=== PATIENT | female | born 1985 | race Caucasian/White ===

== ENCOUNTER 2019-10-06 10:05 | Emergency (ER) | payer OTHER ==
[~2019-10-06] VITALS: Ht 175.3 cm; Wt 79.4 kg
[2019-10-06 10:22] VITALS: BP 119/59
--- NOTE | 2019-10-06 10:22 | NUR ---
Patient ambulated to bed 2. RN evaluating patient at bedside.
--- NOTE | 2019-10-06 10:25 | NUR ---
URINE CUP HANDED TO PT FOR SAMPLE
--- NOTE | 2019-10-06 10:39 | NUR ---
C/O LOWER BACK PAIN PROGRESSIVELY WORSENING AND RADIATING TO L SHOULDER X >1 WK DENIES INJURY AND NO RASH NOTED---ALSO DENIES DYSURIA , PT AWAKE ,ALERT , AMBULATORY WITH STEADY GAIT , AFEBRILE NOT IN DISTRESS. HX--DENIES RX---PHETERMINE, NORCO, VITAMIN D
--- NOTE | 2019-10-06 11:07 | NUR ---
dr urban at bedside.
[2019-10-06] MEDS ORDERED: MORPHINE SULFATE 4 MG/ML SYR IM ONE (11:50)
[2019-10-06 12:21] VITALS: BP 115/60
--- NOTE | 2019-10-06 12:21 | NUR ---
Patient discharged with v/s stable. Written and verbal after care instructions given and explained. Patient alert, oriented and verbalized understanding of instructions. Ambulatory with steady gait. All questions addressed prior to discharge. ID band removed. Patient advised to follow up with PMD. Rx of [place] 5mg-325mg, Ibuprofen 600mg, and Flexeril 10mg given. Patient instructed not to drive while taking pain medications, pt advised it will cause drowsiness. Patient educated on indication of medication including possible reaction and side effects. Opportunity to ask questions provided and answered.
== END 2019-10-06 12:21 | disposition home or self-care (01) ==
LOC: MED 10:05
DX: M54.9 Dorsalgia, unspecified (principal)
CPT/HCPCS: 96372; 99283; J2270

== ENCOUNTER 2021-03-06 18:10 | Emergency (ER) | payer OTHER ==
[~2021-03-06] VITALS: Ht 162.6 cm; Wt 88.0 kg
--- NOTE | 2021-03-06 18:20 | NUR ---
Patient ambulated to bed 12. RN evaluating the patient at bedside.
[2021-03-06 18:25] VITALS: BP 104/69
--- NOTE | 2021-03-06 18:26 | NUR ---
science technician at pt bedside for further evaluation.
--- NOTE | 2021-03-06 18:27 | NUR ---
36 Y/O FEMALE C/O RIGHT THUMB PAIN 03/21 DESCRIBES ACHING RADIATING TO WHOLE HAND X2DAYS. PT STATES SHE SLAMMED IT AND STARTED TO HURT TO RIGHT THUMB ONLY AND NOW WHOLE HAND AFFECTED. NOTED SWELLING TO RIGHT THUMB. PT DENIES N/V, DENIES FEVER/CHILLS. PMH: ASTHMA, TENDONITIS NKA
--- NOTE | 2021-03-06 18:36 | NUR ---
reproduction technician at pt bedside.
[2021-03-06] MEDS ORDERED: KETOROLAC 60 MG/2 ML VIAL IM ONE (19:10)
--- NOTE | 2021-03-06 19:11 | NUR ---
Dr. Shah at pt bedside for further evaluation.
--- NOTE | 2021-03-06 19:14 | NUR ---
Gave report to SHIVA Espinoza. Transfer of care at this time.
--- NOTE | 2021-03-06 19:15 | NUR ---
REPORT RECEIVED FROM SHIVA HESTER FOR CONTINUITY OF CARE.
[2021-03-06] MEDS ORDERED: IBUP-2213 PO (19:20)
[2021-03-06] MEDS ORDERED: ACET-8386 PO (19:20)
--- NOTE | 2021-03-06 19:27 | NUR ---
Patient discharged with v/s stable. Written and verbal after care instructions given and explained. Patient alert, oriented and verbalized understanding of instructions. Ambulatory with steady gait. All questions addressed prior to discharge. ID band removed. Patient advised to follow up with PMD. Rx of HYDROCODONE/ACETAMINOPHEN AND IBUPROFEN given. Patient educated on indication of medication including possible reaction and side effects. Opportunity to ask questions provided and answered.
== END 2021-03-06 19:27 | disposition home or self-care (01) ==
LOC: MED 18:10
DX: M79.644 Pain in right finger(s) (principal); J45.909 Unspecified asthma, uncomplicated; F17.200 Nicotine dependence, unspecified, uncomplicated; Z90.49 Acquired absence of other specified parts of digestive tract
CPT/HCPCS: 73130; 96372; 99283; J1885

== ENCOUNTER 2022-06-16 15:54 | Emergency (ER) | payer OTHER ==
[~2022-06-16] VITALS: Ht 165.1 cm; Wt 100.7 kg
[~2022-06-16 15:54] MED LIST: ACET-8386 PO; IBUP-2213 PO
[2022-06-16 15:59] VITALS: BP 114/73
--- NOTE | 2022-06-16 16:18 | NUR ---
ASSUMED CARE OF PT.
--- NOTE | 2022-06-16 16:21 | NUR ---
37 Y/O FEMALE C/O RIGHT FLANK PAIN 5/10 DESCRIBES DULL AND ACHING X3DAYS. PT STATES + URINARY FREQUENCY. DENIES DYSURIA. DENIES HEMATURIA. PMH: ASTHMA NKA
[2022-06-16] MEDS ORDERED: KETOROLAC 30 MG/ML VIAL IM ONE (16:50)
[2022-06-16] MEDS ORDERED: LID5T TP (16:54)
[2022-06-16] MEDS ORDERED: IBUP-2213 PO (16:54)
[2022-06-16] MEDS ORDERED: CYCL-711 PO (16:54)
[2022-06-16 17:22] VITALS: BP 110/71
--- NOTE | 2022-06-16 17:22 | NUR ---
Patient discharged with v/s stable. Written and verbal after care instructions given FOR ACUTE BACK PAIN and explained. Patient alert, oriented and verbalized understanding of instructions. Ambulatory with steady gait. All questions addressed prior to discharge. ID band removed. Patient advised to follow up with PMD. Rx of FLEXERIL, IBUPROFEN, LIDOCAINE given. Patient educated on indication of medication including possible reaction and side effects. Opportunity to ask questions provided and answered.
== END 2022-06-16 17:22 | disposition home or self-care (01) ==
LOC: MED 15:54
DX: S39.012A Strain of muscle, fascia and tendon of lower back, initial encounter (principal); J45.909 Unspecified asthma, uncomplicated; Z79.899 Other long term (current) drug therapy; Z79.1 Long term (current) use of non-steroidal anti-inflammatories (NSAID); Z79.891 Long term (current) use of opiate analgesic; X58.XXXA Exposure to other specified factors, initial encounter; Y92.89 Other specified places as the place of occurrence of the external cause; Y93.89 Activity, other specified; Y99.8 Other external cause status
CPT/HCPCS: 81002; 81025; 96372; 99283; J1885

== ENCOUNTER 2022-12-23 08:31 | Emergency (ER) | payer OTHER ==
[~2022-12-23] VITALS: Ht 165.1 cm; Wt 97.5 kg
[~2022-12-23 08:31] MED LIST changes: -ACET-8386 PO; +ACET-8905 PO; +CYCL-711 PO; +LID5T TP
[2022-12-23 09:14] VITALS: BP 112/67
--- NOTE | 2022-12-23 09:20 | NUR ---
ASSUMED PATIENT CARE, NURSING ASSESSMENT COMPLETED.
[2022-12-23] MEDS ORDERED: KETOROLAC 30 MG/ML VIAL IVP ONE (09:55)
[2022-12-23] MEDS ORDERED: FAMOTIDINE 20 MG/2 ML VIAL IVP ONE (09:55)
[2022-12-23] MEDS ORDERED: DIPHENOXYLATE /ATROPINE 2.5 MG TAB PO ONE (09:55)
[2022-12-23] MEDS ORDERED: NACL 0.9% 1,000 ML IV SCH (09:55)
[2022-12-23] MEDS ORDERED: ONDANSETRON 4 MG/2 ML VIAL IVP ONE (09:55)
--- NOTE | 2022-12-23 09:56 | NUR ---
Ultrasound at bedside.
[2022-12-23 11:23] LABS: BASOPHILS # (AUTO) 0.1 K/uL (0.00-0.22); BASOPHILS % (AUTO) 0.9 % (0.0-2.0); EOSINOPHILS # (AUTO) 0.1 K/uL (0-0.4); EOSINOPHILS % (AUTO) 1.1 % (0.0-4.0); HEMATOCRIT 43.4 % (36-48); HEMOGLOBIN 14.7 g/dL (12.0-16.0); LYMPHOCYTES # (AUTO) 0.9 K/uL (2.5-16.5); LYMPHOCYTES % (AUTO) 14.6 % (20.5-51.1); MEAN CORPUSCULAR HEMOGLOBIN 30 pg (27-31); MEAN CORPUSCULAR HGB CONC 34 g/dL (33-37); MEAN CORPUSCULAR VOLUME 86.7 fL (80-94); MONOCYTES # (AUTO) 0.6 K/uL (0.8-1.0); MONOCYTES % (AUTO) 10.7 % (1.7-9.3); NEUTROPHILS # (AUTO) 4.3 K/uL (1.8-7.7); NEUTROPHILS % (AUTO) 72.7 % (42.2-75.2); PLATELET COUNT (AUTO) 242 K/uL (140-450); WHITE BLOOD COUNT (AUTO) 5.9 K/uL (4.8-10.8)
[2022-12-23 11:39] LABS: ALBUMIN 4.3 g/dL (3.4-5.0); ANION GAP 14.8 (8-16); CARBON DIOXIDE 23.7 mmol/L (21-32); CREATININE 0.8 mg/dL (0.6-1.3); POTASSIUM 3.5 mmol/L (3.5-5.1); TOTAL BILIRUBIN 0.5 mg/dL (0.0-1.0)
[2022-12-23] MEDS ORDERED: ONDA-188 PO (11:57)
[2022-12-23] MEDS ORDERED: IMO2 PO (11:57)
[2022-12-23] MEDS ORDERED: FAMO-92 PO (11:57)
[2022-12-23 12:36] LABS: APPEARANCE,URINE CLEAR (CLEAR); BILIRUBIN,URINE NEGATIVE (NEGATIVE); BLOOD, URINE NEGATIVE (NEGATIVE); COLOR,URINE YELLOW (YELLOW); LEUKOCYTE ESTERASE ,URINE NEGATIVE (NEGATIVE); NITRITE, URINE NEGATIVE (NEGATIVE); UGLUCOSE NEGATIVE (NEGATIVE)
[2022-12-23 12:44] VITALS: BP 118/70
--- NOTE | 2022-12-23 12:51 | NUR ---
Patient discharged with v/s stable. Written and verbal after care instructions given and explained. Patient alert, oriented and verbalized understanding of instructions. Ambulatory with steady gait. All questions addressed prior to discharge. ID band removed. Patient advised to follow up with PMD. Rx of PEPCID, LOPERAMIDE, ZOFRAN given. Patient educated on indication of medication including possible reaction and side effects. Opportunity to ask questions provided and answered.
== END 2022-12-23 12:51 | disposition home or self-care (01) ==
LOC: MED 08:31
DX: R10.13 Epigastric pain (principal); R10.11 Right upper quadrant pain; R10.31 Right lower quadrant pain; R11.10 Vomiting, unspecified; R19.7 Diarrhea, unspecified; J45.909 Unspecified asthma, uncomplicated; Z98.890 Other specified postprocedural states; Z79.899 Other long term (current) drug therapy; Z79.891 Long term (current) use of opiate analgesic; Z79.1 Long term (current) use of non-steroidal anti-inflammatories (NSAID)
CPT/HCPCS: 36415; 76705; 80053; 81003; 81025; 83690; 85025; 96361; 96374; 96375; 99285; J1885; J2405; J3490; J7030; Q0092